=== PATIENT | female | born 1995 | race Caucasian/White ===

== ENCOUNTER 2022-10-11 22:23 | Emergency (ER) | payer OTHER ==
[2022-10-11] MEDS ORDERED: TORAdol 30 mg Injection IM ONE (22:44)
--- NOTE | 2022-10-11 22:53 | ERPHSYRPT ---
- History of Present Illness Time Seen by Provider: 10/11/22 22:50 Exam Limitations: no limitations Patient Subjective Stated Complaint: pt states "my stomach has been hurting approx 3-4 days. it is bilat lower abd and radiates to back and vagina" she reports the pain started the day after having sexual intercourse. Triage Nursing Assessment: pt ambulated from EMS cot to bathroom then bed in room 6 independently with a slow steady gait. pt is alert and oriented times t hree, able to move all extremities, able to speak in complete sentences, and with resp even and unlabored. abd soft, nondistended, symmetrical, obese, with positive bowel sounds in all 4 quads. pt states the pain is sharp dull throb and ache and is constant for the last 3-4days and started a day after sexual intercourse. reports slight nausea without vomiting, denies change in appetite or bowel movements. Physician History: Patient is a 27-year-old female presents to emergency department via EMS for evaluation of lower abdominal pain. Symptoms have been ongoing for a pproximately 3 days. Patient was worked up for the same pain at [facility] approximately 3 days ago. Patient had a pelvic exam and a urinalysis completed. Patient was given pain medication and was sent home. Patient states the work-up was negative. Patient concerned as her pain is ongoing. Patient states her pain started 1 day after having intercourse. No fever. No nausea or vomiting. No vaginal discharge. Symptoms are mild to moderate in intensity. No specific worsening improving factors. Patient states she is otherwise healthy. She voices no other complaints or concerns at this time. Portions of this note were created with voice recognition technology. There may be grammatical, spelling, punctuation or sound alike errors Timing/Duration: day(s) Severity: moderate (3 days) Modifying Factors: Improves With: nothing Associated Symptoms: denies symptoms Allergies/Adverse Reactions: clarithromycin [From Biaxin] Allergy (Intermediate, Verified 10/11/22 22:26) Hives fluticasone [From Flonase] Allergy (Intermediate, Verified 10/11/22 22:26) Swelling of Face montelukast [From Singulair] Allergy (Intermediate, Verified 10/11/22 22:26) Swelling of Face Home Medications: Amlodipine Besylate [Norvasc] 10 mg PO DAILY 10/11/22 [History] Cariprazine HCl [Vraylar] 4.5 mg PO DAILY 10/11/22 [History] Ergocalciferol (Vitamin D2) [Drisdol] 1,250 mcg PO WEEKLY 10/11/22 [History] Escitalopram Oxalate [Lexapro] 20 mg PO DAILY 10/11/22 [History] Pramipexole Di-HCl [Pramipexole Dihydrochloride] 0.125 mg PO HS 10/11/22 [History] norethindrone ac-eth estradioL [Microgestin 21 1.5-30 Tab] 1 each PO DAILY 10/11/22 [History] Hx Tetanus, Diphtheria Vaccination/Date Given: Yes Hx Influenza Vaccination/Date Given: Yes Hx Pneumococcal Vaccination/Date Given: No Immunizations Up to Date: Yes Travel Risk - International Travel Have you traveled outside of the country in past 3 weeks: No - Coronavirus Screening Are you exhibiting any of the following symptoms?: No Close contact with a COVID-19 positive Pt in past 14-21 Days: No - Vaccine Status Have you recieved a Covid-19 vaccination: Yes Landscaper: Moderna - Vaccination Dates Date of 2cond Vaccination (if applicable): 11/23/20 - Review of Systems Constitutional: No Symptoms, No Fever, No Chills Eyes: No Symptoms Ears, Nose, & Throat: No Symptoms Respiratory: No Symptoms, No Cough, No Dyspnea Cardiac: No Symptoms, No Chest Pain, No Edema, No Syncope Abdominal/Gastrointestinal: No Symptoms, No Abdominal Pain, No Nausea, No Vomiting, No Diarrhea Genitourinary Symptoms: No Symptoms, No Dysuria Musculoskeletal: No Symptoms, No Back Pain, No Neck Pain Skin: No Symptoms, No Rash Neurological: No Symptoms, No Dizziness, No Focal Weakness, No Sensory Changes Psychological: No Symptoms Endocrine: No Symptoms Hematologic/Lymphatic: No Symptoms Immunological/Allergic: No Symptoms All Other Systems: Reviewed and Negative - Past Medical History Pertinent Past Medical History: Yes Neurological History: Migraines ENT History: No Pertinent History Cardiac History: Hypertension Respiratory History: No Pertinent History, Sleep Apnea Endocrine Medical History: Marquette's Disease Musculoskeletal History: No Pertinent History GI Medical History: GERD History: Other Psycho-Social History: Anxiety, Attention Deficit Disorder, Bipolar, Depression Female Reproductive Disorders: No Pertinent History Other Medical History: biplor 1 and 2, adhd, kidney stone a few months ago - Past Surgical History Past Surgical History: Yes Neuro Surgical History: No Pertinent History Cardiac: No Pertinent History Respiratory: No Pertinent History Gastrointestinal: Cholecystectomy Genitourinary: No Pertinent History Musculoskeletal: No Pertinent History Female Surgical History: Section Other Surgical History: tubes in ears x4, - Social History Smoking Status: Current every day smoker How long have you smoked: 14yrs Exposure to second hand smoke: No Drug Use: marijuana Patient Lives Alone: No - Female History Hx Last Menstrual Period: Jun Hx Now: No - Nursing Vital Signs Nursing Vital Signs: Initial Vital Signs Temperature 96.6 F 10/11/22 22:24 Pulse Rate 88 10/11/22 22:24 Respiratory Rate 18 10/11/22 22:24 Blood Pressure 159/92 10/11/22 22:24 O2 Sat by Pulse Oximetry 95 10/11/22 22:24 Pain Scale Pain Intensity 8 - Physical Exam General Appearance: no apparent distress, alert Eye Exam: PERRL/EOMI, eyes nml inspection Ears, Nose, Throat Exam: normal ENT inspection, TMs normal, pharynx normal, moist mucous membranes Neck Exam: normal inspection, non-tender, supple, full range of motion Respiratory Exam: normal breath sounds, lungs clear, No respiratory distress Cardiovascular Exam: regular rate/rhythm, normal heart sounds, normal peripheral pulses Gastrointestinal/Abdomen Exam: soft, normal bowel sounds, other (No rebound no guarding no peritoneal signs. Abdomen is soft. Patient reports some tenderness to palpation lower abdomen. Pain spans across lower abdomen. Pain undifferentiated.), No tenderness, No mass Back Exam: normal inspection, normal range of motion, No CVA tenderness, No vertebral tenderness Extremity Exam: normal inspection, normal range of motion, pelvis stable Neurologic Exam: alert, oriented x 3, cooperative, normal mood/affect, nml cerebellar function, nml station & gait, sensation nml, No motor deficits Skin Exam: normal color, warm, dry, No rash Lymphatic Exam: No adenopathy SpO2 Interpretation: normal SpO2: 95 O2 Delivery: Room Air - Course Nursing assessment & vital signs reviewed: Yes - CT Exams Abdomen/Pelvis CT Interpretation: Tele-radiologist Report (Ovarian cyst, hepatomegaly, rad iologist recommending ultrasound.) - Radiology Ultrasound Exam Pelvis Ultrasound: discussed w/radiologist (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 negative for torsion.) Ordered Tests: Active Orders 24 hr Category Date Time Status ABDOMEN AND PELVIS W/0 CONTRAS [CT] Stat Exams 10/11/22 22:49 Completed PELVIS TRANS VAGINAL [US] Stat Exams 10/12/22 00:48 Ordered CBC W DIFF Stat Lab 10/11/22 22:53 Completed CMP Stat Lab 10/11/22 22:53 Completed UA W/RFX UR CULTURE Stat Lab 10/11/22 22:28 Completed Medication Summary Discontinued Medications Generic Name Dose Route Start Last Admin Trade Name Alejandro PRN Reason Stop Dose Admin Ketorolac Tromethamine 30 mg 10/11/22 22:44 10/11/22 22:57 Ketorolac Tromethamine 30 Mg/Ml Inj IM 10/11/22 22:45 30 mg STAT ONE Administration Ketorolac Tromethamine Confirm 10/11/22 22:55 Ketorolac Tromethamine 30 Mg/Ml Inj Administered 10/11/22 22:56 Dose 30 mg .ROUTE .STK-MED ONE Ondansetron HCl 4 mg 10/11/22 23:35 10/11/22 23:37 Zofran 4 Mg/Udtablet Orally Disintegrating PO 10/11/22 23:36 4 mg STAT ONE Administration Ondansetron HCl Confirm 10/11/22 23:36 Zofran 4 Mg/Udtablet Orally Disintegrating Administered 10/11/22 23:37 Dose 4 mg .ROUTE .STK-MED ONE Lab/Rad Data: Laboratory Result Diagrams 10/11/22 22:53 10/11/22 22:53 Laboratory Results 10/11/22 10/11/22 10/11/22 Range/Units 22:53 22:53 22:28 WBC 14.6 H (4.0-10.5) x10^3/uL RBC 4.76 (4.1-5.4) x10^6/uL Hgb 14.7 (12.0-16.0) g/dL Hct 45.0 (35-47) % MCV 94.5 (78-100) fL MCH 30.9 (26-32) pg MCHC 32.7 (32-36) g/dL RDW 12.9 (11.5-14.0) % Plt Count 245 (150-450) x10^3/uL MPV 9.8 (7.5-11.0) fL Gran % 60.4 (36.0-66.0) % Immature Gran % (Auto) 0.3 (0.00-0.4) % Nucleat RBC Rel Count 0.0 (0.00-0.1) % Eos # (Auto) 0.19 (0-0.5) x10^3/uL Immature Gran # (Auto) 0.04 H (0.00-0.03) x10^3u/L Absolute Lymphs (auto) 4.68 H (1.0-4.6) x10^3/uL Absolute Monos (auto) 0.82 (0.0-1.3) x10^3/uL Absolute Nucleated RBC 0.00 (0.00-0.01) x10^3u/L Lymphocytes % 32.0 (24.0-44.0) % Monocytes % 5.6 (0.0-12.0) % Eosinophils % 1.3 (0.00-5.0) % Basophils % 0.4 (0.0-0.4) % Absolute Granulocytes 8.85 H (1.4-6.9) x10^3/uL Basophils # 0.06 (0-0.4) x10^3/uL Sodium 139 (137-145) mmol/L Potassium 3.8 (3.5-5.1) mmol/L Chloride 106 (98-107) mmol/L Carbon Dioxide 24 (22-30) mmol/L Anion Gap 12.5 (5-15) MEQ/L BUN 7 (7-17) mg/dL Creatinine 0.54 (0.52-1.04) mg/dL Estimated GFR > 60.0 ML/MIN Glucose 125 H (74-106) mg/dL Calcium 9.3 (8.4-10.2) mg/dL Total Bilirubin 0.20 (0.2-1.3) mg/dL AST 22 (14-36) U/L ALT 27 (0-35) U/L Alkaline Phosphatase 74 (38-126) U/L Serum Total Protein 6.6 (6.3-8.2) g/dL Albumin 3.5 (3.5-5.0) g/dL Urine Color Yellow (Yellow) Urine Appearance Turbid A (Clear) Urine pH 6.5 (4.6-8.0) Ur Specific Norvell 1.020 (1.005-1.030) Urine Protein Negative (Negative) Urine Glucose (UA) Negative (Negative) mg/dL Urine Ketones Negative (Negative) Urine Blood Negative (Negative) Urine Nitrite Negative (Negative) Urine Bilirubin Negative (Negative) Urine Urobilinogen 1.0 A (0.2) mg/dL Ur Leukocyte Esterase Small A (Negative) U Hyaline Cast (Auto) NONE SEEN (0-2) /LPF Urine Microscopic RBC 0-2 (0-5) /HPF Urine Microscopic WBC 3-5 (0-5) /HPF Ur Epithelial Cells Moderate A (None Seen) /HPF Amorphous Crystals Few A (None Seen) /HPF Urine Bacteria Rare A (None Seen) /HPF Urine Culture Reflexed NO (NO) - Progress Progress: improved Progress Note: Outside medical records reviewed. Dr. Stephens reviewed medical records from [facility]. Patient followed up at [facility] 3 days ago. Patient received a work-up for STI. Patient received appropriate antibiotic therapy. No need to repeat pelvic exam at this time. Over CT abdomen pelvis was not performed. We will perform CT abdomen pelvis this evening 10/11/22 23:43 Patient 27-year-old female presents to our ED for evaluation of lower abdominal pain. Patient arrived via EMS. Patient had a STI work-up at an outside hospital. CT scan and labs obtained from our ED. CT scan shows a large ovarian cyst. Radiologist recommended a ultrasound of the ovary. Ultrasound negative for torsion. CBC reveals a slight leukocytosis. CMP essentially within normal limits. Urinalysis negative for UTI. Patient received Zofran for nausea and Toradol for pain. Patient resting comfortably. No indication for further work- up. Patient will be referred to further evaluation and treatment of large ovarian cyst. Patient agrees to follow-up as discussed. She states she is ready for discharge. Patient voices no other complaints or concerns at this time. Portions of this note were created with voice recognition technology. There may be grammatical, spelling, punctuation or sound alike errors Complexity of problem addressed is moderate new diagnosis with uncertain prognosis No critical care time Complexity of data reviewed and analyzed is moderate. Seen ordered, test reviewed and analyzed by Dr. Stephens. Testing includes urinalysis laboratory studies, pelvic ultrasound and CT abdomen pelvis. Risk of complication and or risk morbidity/mortality of patient management is moderate. IV Toradol and Zofran administered. Patient agrees to follow-up with PROCESS LINE OPERATOR for further evaluation and treatment. Patient states ready for discharge. She voices no other complaints or concerns at this time. Portions of this note were created with voice recognition technology. There may be grammatical, spelling, punctuation or sound alike errors 10/12/22 01:20 Counseled pt/family regarding: lab results, diagnosis, rad results - Departure Departure Disposition: Home Clinical Impression: Hepatomegaly, Umbilical hernia, Right ovarian cyst Condition: Stable Critical Care Time: No Referrals: HAILEY LOTT NP [Primary Care Provider] - Follow up/PCP as directed JORDAN FREY DO [ACTIVE STAFF] - Follow up/PCP as directed Additional Instructions: Discharge/Care Plan DANIELLA SPEARS was seen on 10/12/22 in the Emergency Room. The patient was counseled regarding Diagnosis,Lab results, Imaging studies, need for follow up and when to return to the Emergency Room. Prescriptions given: Discharge Note I have spoken with the patient and/or caregivers. I have explained the patient's condition, diagnosis and treatment plan based on the information available to me at this time. I have answered the patient's and/or caregiver's questions and addressed any concerns. The patient and/or caregivers have as good understanding of the patient's diagnosis, condition and treatment plan as can be expected at this point. The vital signs have been stable. The patient's condition is stable and appropriate for discharge from the emergency department. The patient will pursue further outpatient evaluation with the primary care p louise or other designated or consulting physician as outlined in the discharge instructions. The patient and/or caregivers are agreeable to this plan of care and follow-up instructions have been explained in detail. The patient and/or caregivers have received these instruction. The patient/and or caregivers are aware that any significant change in condition or worsening of symptoms should prompt an immediate return to this or the closest emergency department or call 911.
[2022-10-11 22:55] LABS: Absolute Neutrophil Ct (ANC) 8.85 x10^3/uL (1.4-6.9); BASOPHIL % 0.4 % (0.0-0.4); Basophil (Absolute #) 0.06 x10^3/uL (0-0.4); Eosinophil % 1.3 % (0.00-5.0); Eosinophil (Absolute #) 0.19 x10^3/uL (0-0.5); Hemoglobin 14.7 g/dL (12.0-16.0); IMMATURE GRAN # 0.04 x10^3u/L (0.00-0.03); IMMATURE GRAN % 0.3 % (0.00-0.4); Lymphocyte (Absolute #) 4.68 x10^3/uL (1.0-4.6); Mean Cell Volume 94.5 fL (78-100); Mean Corpuscular Hemoglobin 30.9 pg (26-32); Mean Corpuscular Hgb Concent. 32.7 g/dL (32-36); Mean Platelet Volume 9.8 fL (7.5-11.0); Monocyte (Absolute #) 0.82 x10^3/uL (0.0-1.3); Monocytes % 5.6 % (0.0-12.0); Neutrophil % 60.4 % (36.0-66.0); Platelet Count 245 x10^3/uL (150-450); Red Blood Count 4.76 x10^6/uL (4.1-5.4); Red Cell Distribution Width 12.9 % (11.5-14.0); White Blood Count 14.6 x10^3/uL (4.0-10.5)
[2022-10-11] MEDS ORDERED: TORAdol 30 mg Injection ONE (22:55)
[2022-10-11 23:08] LABS: ALBUMIN 3.5 g/dL (3.5-5.0); ALKALINE PHOSPHATASE 74 U/L (38-126); ANION GAP 12.5 MEQ/L (5-15); BLOOD UREA NITROGEN 7 mg/dL (7-17); CHLORIDE 106 mmol/L (98-107); Calcium 9.3 mg/dL (8.4-10.2); Carbon Dioxide 24 mmol/L (22-30); Creatinine 1 0.54 mg/dL (0.52-1.04); EST GLOMERULAR FILTRATION RATE > 60.0 ML/MIN; Glucose 125 mg/dL (74-106); Potassium 3.8 mmol/L (3.5-5.1); SGOT/AST 22 U/L (14-36); SGPT/ALT 27 U/L (0-35); SODIUM 139 mmol/L (137-145); Total Protein 6.6 g/dL (6.3-8.2)
[2022-10-11 23:27] LABS: Appearance Turbid (Clear); Bacteria Rare /HPF (None Seen); Bilirubin Negative (Negative); Blood Negative (Negative); Epithelial Cells Moderate /HPF (None Seen); Glucose, Urine Negative (Negative); Hyaline Casts NONE SEEN /LPF (0-2); Ketones Negative (Negative); Leukocyte Esterase Small (Negative); Nitrite Negative (Negative); Ph 6.5 (4.6-8.0); Protein,Urine Dip Negative (Negative); RBC 0-2 /HPF (0-5)
[2022-10-11 23:34] LABS: Amourphous Crystal Few /HPF (None Seen)
[2022-10-11 23:35] LABS: ADD URINE CULTURE? NO (NO)
[2022-10-11] MEDS ORDERED: ZOFRAN ODT 4 MG PO ONE (23:35)
--- NOTE | 2022-10-11 23:35 | XRAY ---
CLINICAL HISTORY:pain COMPARISON:None; TECHNIQUES:Contiguous, multislice, nonenhanced CT scan of the abdomen and pelvis in the axial plane with multiplanar reconstructions. Total DLP-1424.36; CTDI-25.34; FINDINGS: Mild enlarged liver measuring about 18.7 cm in craniocaudal axis showing homogeneous attenuation with no obvious focal mass lesion within the limitations of non-contrast study. No intrahepatic biliary dilatation. Gallbladder is surgically removed as evidenced by metallic densities in the gallbladder fossa. Pancreas and spleen appear unremarkable. No adrenal or retroperitoneal masses. Both kidneys appear normal in size, shows normal contour and attenuation. No calculus, mass or hydronephrosis in either kidney. No ascites. No para-aortic lymphadenopathy. Anterior abdominal wall defect in the umbilical region containing omental fat representing umbilical hernia. Imaged bowel structures appear unremarkable. No bowel wall thickening. No bowel dilatation. The appendix is visualized and appear within normal limits. Urinary bladder shows inadequate distention. Normal-sized uterus showing homogeneous attenuation. There is a 6.3 X4.1X 5.4 cm cystic attenuation lesion in the right adnexa. No acute osseous abnormalities or suspicious bony lesions. Visualized sections of lower chest shows no focal mass or consolidation. IMPRESSION: Limited parenchymal organ evaluation within the limitations of non-contrast study. Mild hepatomegaly. Fat-containing umbilical hernia. Cystic attenuation lesion in the right adnexa measuring about 6.3 cm representing adnexal cyst/ right para ovarian cyst. Further evaluation with ultrasound is recommended. Rest of the findings as detailed above. Electronically Signed by: Galilea Stevens MD. (10/11/2022 22:30:52 ORDNANCE TECHNICIAN)
[2022-10-11] MEDS ORDERED: ZOFRAN ODT 4 MG ONE (23:36)
[2022-10-12 01:33] VITALS: BP 134/100; PULSE 79; O2SAT 97
--- NOTE | 2022-10-12 08:43 | XRAY ---
Indication: Abdomen pain. Torsion. Two-dimensional transabdominal and transvaginal pelvic sonogram performed. Comparison: None Uterus anteverted measuring 8.7 x 4.6 x 5.5 cm. No focal solid/cystic uterine mass. Endometrial stripe not measured. Lower uterus demonstrates tiny nonspecific endometrial cavity/endocervical fluid up to 3 mm in thickness. No focal endometrial cavity mass. Right ovary measures 3.5 x 2.0 x 3.1 cm and demonstrates normal perfusion. Right ovary also demonstrates a 5.7 cm benign appearing cyst. Nonvisualization left ovary. No suspicious solid adnexal mass or free fluid. Impression: Nonvisualization left ovary. 5.7 cm dominant right ovary cyst with normal ovary perfusion. Tiny nonspecific endometrial cavity fluid. Comment: Preliminary report was given.
== END 2022-10-12 01:36 | disposition home or self-care (01) ==
LOC: ED 22:23
DX: R16.0 Hepatomegaly, not elsewhere classified (principal); K42.9 Umbilical hernia without obstruction or gangrene; N83.201 Unspecified ovarian cyst, right side; R10.30 Lower abdominal pain, unspecified; I10 Essential (primary) hypertension; Z79.899 Other long term (current) drug therapy; Z72.0 Tobacco use
CPT/HCPCS: 36415; 74176; 76830; 80053; 81001; 85025; 96372; 99284; J1885; Q0162

== ENCOUNTER 2022-11-13 01:23 | Emergency (ER) | payer OTHER ==
[2022-11-13 01:39] VITALS: PULSE 93; O2SAT 97
--- NOTE | 2022-11-13 01:43 | ERPHSYRPT ---
- History of Present Illness Time Seen by Provider: 11/13/22 01:25 Source: patient Exam Limitations: no limitations Patient Subjective Stated Complaint: pt states she has nasal congestion and a headache Triage Nursing Assessment: pt came into the er via ambulance; pt is axo x4; c/o nasal congestion; c/o headache; pt denies pain; skin is pink, warm, dry; clear lung sounds in all lobes; no cough present; no SOB present; hypertensive Physician History: Nasal congestion, sinus drainage. No fever, chills, systemic signs of illness. No falls or other trauma. Has been trying Flonase at home. No other cough, cold. Taking p.o. well. No fever here. No signs of meningitis, signs of a venous sinus thrombosis, encephalitis. Allergies/Adverse Reactions: clarithromycin [From Biaxin] Allergy (Intermediate, Verified 11/13/22 01:26) Hives fluticasone [From Flonase] Allergy (Intermediate, Verified 11/13/22 01:26) Swelling of Face montelukast [From Singulair] Allergy (Intermediate, Verified 11/13/22 01:26) Swelling of Face Home Medications: Amlodipine Besylate [Norvasc] 10 mg PO DAILY 10/11/22 [History] Pramipexole Di-HCl [Pramipexole Dihydrochloride] 0.25 mg PO HS 10/11/22 [History] norethindrone ac-eth estradioL [Microgestin 21 1.5-30 Tab] 1 each PO DAILY 10/11/22 [History] Omeprazole 20 mg PO DAILY 11/13/22 [History] Ondansetron ODT 4 MG [Zofran Odt 4 mg] 4 mg PO Q6HPRN PRN 11/13/22 [History] Hx Tetanus, Diphtheria Vaccination/Date Given: Yes Hx Influenza Vaccination/Date Given: Yes Hx Pneumococcal Vaccination/Date Given: No Travel Risk - International Travel Have you traveled outside of the country in past 3 weeks: No - Coronavirus Screening Are you exhibiting any of the following symptoms?: No Close contact with a COVID-19 positive Pt in past 14-21 Days: No - Vaccine Status Have you recieved a Covid-19 vaccination: Yes [place]per: Moderna - Vaccination Dates Date of 2cond Vaccination (if applicable): 11/23/20 - Review of Systems Constitutional: No Fever, No Chills Eyes: No Symptoms Ears, Nose, & Throat: Ear Pain, Nose Congestion Respiratory: No Cough, No Dyspnea Cardiac: No Chest Pain, No Edema, No Syncope Abdominal/Gastrointestinal: No Abdominal Pain, No Nausea, No Vomiting, No Diarrhea Genitourinary Symptoms: No Dysuria Musculoskeletal: No Back Pain, No Neck Pain Skin: No Rash Neurological: No Dizziness, No Focal Weakness, No Sensory Changes Psychological: No Symptoms Endocrine: No Symptoms All Other Systems: Reviewed and Negative - Past Medical History Pertinent Past Medical History: Yes Neurological History: Migraines ENT History: No Pertinent History Cardiac History: Hypertension Respiratory History: No Pertinent History, Sleep Apnea Endocrine Medical History: Jonnathan's Disease Musculoskeletal History: No Pertinent History GI Medical History: GERD History: Other Psycho-Social History: Anxiety, Attention Deficit Disorder, Bipolar, Depression Female Reproductive Disorders: No Pertinent History Other Medical History: biplor 1 and 2, adhd, kidney stone a few months ago - Past Surgical History Past Surgical History: Yes Neuro Surgical History: No Pertinent History Cardiac: No Pertinent History Respiratory: No Pertinent History Gastrointestinal: Cholecystectomy Genitourinary: No Pertinent History Musculoskeletal: No Pertinent History Female Surgical History: Section Other Surgical History: tubes in ears x4, - Social History Smoking Status: Light tobacco smoker How long have you smoked: 14yrs Exposure to second hand smoke: No Drug Use: marijuana Patient Lives Alone: No - Female History Hx Now: No - Nursing Vital Signs Nursing Vital Signs: Initial Vital Signs Temperature 98 F 11/13/22 01:31 Pulse Rate 93 H 11/13/22 01:31 Respiratory Rate 14 11/13/22 01:31 O2 Sat by Pulse Oximetry 97 11/13/22 01:31 Pain Scale Pain Intensity 0 - Physical Exam General Appearance: no apparent distress, alert Eye Exam: PERRL/EOMI, eyes nml inspection Ears, Nose, Throat Exam: normal ENT inspection, TMs normal, pharynx normal, moist mucous membranes, other (Patient has no teeth) Neck Exam: normal inspection, non-tender, supple, full range of motion Respiratory Exam: normal breath sounds, lungs clear, No respiratory distress Cardiovascular Exam: regular rate/rhythm, normal heart sounds, normal peripheral pulses Gastrointestinal/Abdomen Exam: soft, normal bowel sounds, No tenderness, No mass Back Exam: normal inspection, normal range of motion, No CVA tenderness, No vertebral tenderness Extremity Exam: normal inspection, normal range of motion, pelvis stable Neurologic Exam: alert, oriented x 3, cooperative, normal mood/affect, nml cerebellar function, nml station & gait, sensation nml, No motor deficits Skin Exam: normal color, warm, dry, No rash Lymphatic Exam: No adenopathy SpO2: 97 - Course Nursing assessment & vital signs reviewed: Yes - Progress Progress: improved Progress Note: 11/13/22 01:45 Given that patient has been feeling unwell for 3 weeks we will plan to treat with antibiotics at this point time. This is given that she does not feel improved with sinus medication. They state their understanding will follow-up with PCP. Amoxicillin going home. Counseled pt/family regarding: diagnosis, need for follow-up - Departure Departure Disposition: Home Clinical Impression: Sinusitis Condition: Stable Critical Care Time: No Referrals: HAILEY LOTT, CANE BURNER [Primary Care Provider] - Follow up/PCP as directed Instructions: Headache, Adult (DC) Prescriptions: Amoxicillin 500 mg Cap [Amoxil 500 mg] 500 mg PO BID 10 Days #20 cap
== END 2022-11-13 02:00 | disposition home or self-care (01) ==
LOC: ED 01:23
DX: J32.9 Chronic sinusitis, unspecified (principal); R09.81 Nasal congestion; I10 Essential (primary) hypertension; Z79.899 Other long term (current) drug therapy; Z72.0 Tobacco use
CPT/HCPCS: 99281

== ENCOUNTER 2023-02-27 20:25 | Emergency (ER) | payer OTHER ==
[2023-02-27 20:30] VITALS: TEMP 97.9
--- NOTE | 2023-02-27 21:15 | ERPHSYRPT ---
- History of Present Illness Historian: patient, EMS Exam Limitations: no limitations Patient Subjective Stated Complaint: abd pain x4 days, vomiting, cough Triage Nursing Assessment: Pt brought in by ambulance. Pt alert and oriented x4. Pt c/o abd pain x4 days, with nausea, vomiting and diarrhea. Pt also c/o non-prod cough. Abd is obese with active bs x4 quad, pain to upper middle epiigastic area. Pt c/o flank pain as well. Lungs clear, heart tones reg. LBM today. Physician History: 27 yo WF w RUQ w diarrhea x 5days/N/V/D/RUQ pain rated a 9 out of 10 and stabbing presents per [facility]. She denies dysuria/hematuria/fever/melena/hematoch ezia. Pt seen at [facility] on 01/15/23 by me for similar complaints w neg labs/neg CT abv-pelvis. Timing/Duration: other (5 days) Quality: stabbing Abdominal Pain Onset Location: RUQ Pain Radiation: back Severity of Pain-Max: severe Severity of Pain-Current: severe Modifying Factors: Improves With: nothing Associated Symptoms: denies symptoms, diarrhea, nausea, vomiting Previous symptoms: same symptoms as today Allergies/Adverse Reactions: clarithromycin [From Biaxin] Allergy (Intermediate, Verified 02/27/23 20:40) Hives fluticasone [From Flonase] Allergy (Intermediate, Verified 02/27/23 20:40) Swelling of Face montelukast [From Singulair] Allergy (Intermediate, Verified 02/27/23 20:40) Swelling of Face latex Adverse Reaction (Mild, Verified 02/27/23 20:40) Rash Home Medications: Amlodipine Besylate [Norvasc] 10 mg PO DAILY 10/11/22 [History] Pramipexole Di-HCl [Pramipexole Dihydrochloride] 0.25 mg PO HS 10/11/22 [History] norethindrone ac-eth estradioL [Microgestin 21 1.5-30 Tab] 1 each PO DAILY 10/11/22 [History] Omeprazole 20 mg PO DAILY 11/13/22 [History] Cariprazine HCl [Vraylar] 4.5 mg PO HS 02/27/23 [History] Hx Tetanus, Diphtheria Vaccination/Date Given: (unknown) Hx Influenza Vaccination/Date Given: No Hx Pneumococcal Vaccination/Date Given: No Travel Risk - International Travel Have you traveled outside of the country in past 3 weeks: No - Coronavirus Screening Are you exhibiting any of the following symptoms?: Yes Symptoms: Cough: New Onset, Vomiting/Diarrhea Close contact with a COVID-19 positive Pt in past 14-21 Days: No - Vaccine Status Have you recieved a Covid-19 vaccination: Yes 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 - Review of Systems Constitutional: No Symptoms Eyes: No Symptoms Ears, Nose, & Throat: No Symptoms Respiratory: No Symptoms Cardiac: No Symptoms Abdominal/Gastrointestinal: No Symptoms, Abdominal Pain, Nausea, Vomiting, Diarrhea Genitourinary Symptoms: No Symptoms Musculoskeletal: No Symptoms Skin: No Symptoms Neurological: No Symptoms Psychological: No Symptoms Endocrine: No Symptoms Hematologic/Lymphatic: No Symptoms Immunological/Allergic: No Symptoms - Past Medical History Pertinent Past Medical History: Yes Neurological History: Migraines ENT History: No Pertinent History Cardiac History: Hypertension Respiratory History: Sleep Apnea Endocrine Medical History: [place]'s Disease Musculoskeletal History: No Pertinent History GI Medical History: GERD, Gallbladder Disease History: Other Psycho-Social History: Anxiety, Attention Deficit Disorder, Bipolar, Depression Female Reproductive Disorders: No Pertinent History Other Medical History: biplor 1 and 2, adhd, kidney stone a few months ago - Past Surgical History Past Surgical History: Yes Neuro Surgical History: No Pertinent History Cardiac: No Pertinent History Respiratory: No Pertinent History Gastrointestinal: Cholecystectomy Genitourinary: No Pertinent History Musculoskeletal: No Pertinent History Female Surgical History: Section Other Surgical History: tubes in ears x4, all teeth extracted - Social History Smoking Status: Former smoker How long have you smoked: 14yrs Exposure to second hand smoke: Yes Drug Use: none Patient Lives Alone: No - Female History Hx Last Menstrual Period: . Hx Now: (unknown) - Nursing Vital Signs Nursing Vital Signs: Initial Vital Signs Temperature 97.9 F 02/27/23 20:29 Pulse Rate 96 H 02/27/23 20:29 Respiratory Rate 24 02/27/23 20:29 Blood Pressure 133/91 02/27/23 20:29 O2 Sat by Pulse Oximetry 96 02/27/23 20:29 Pain Scale Pain Intensity 8 Hypertensive - Physical Exam General Appearance: no apparent distress Eye Exam: PERRL/EOMI, eyes nml inspection Ears, Nose, Throat Exam: normal ENT inspection, TMs normal, pharynx normal, moist mucous membranes Neck Exam: normal inspection, non-tender, supple, full range of motion, No meningismus, No mass, No Brudzinski, No Kernig's, No carotid bruit Respiratory Exam: normal breath sounds, lungs clear, airway intact Cardiovascular Exam: regular rate/rhythm, normal heart sounds, normal peripheral pulses, capillary refill <2 sec, No murmur Gastrointestinal/Abdomen Exam: soft, normal bowel sounds, tenderness (Mild RUQ TTP wo guarding or rebound) Back Exam: normal inspection, normal range of motion, No CVA tenderness Extremity Exam: normal inspection, normal range of motion Neurologic Exam: alert, oriented x 3, cooperative, clin application specialist II-XII nml as tested, normal mood/affect, nml cerebellar function, nml station & gait, sensation nml Skin Exam: normal color, warm, dry Lymphatic Exam: No adenopathy SpO2 Interpretation: normal SpO2: 96 O2 Delivery: Room Air - Course Nursing assessment & vital signs reviewed: Yes - CT Exams Abdomen/Pelvis CT Interpretation: Tele-radiologist Report (NAD/VERONICA/Umbilical hernia/R adnexal cyst) Ordered Tests: Active Orders 24 hr Category Date Time Status ABDOMEN AND PELVIS W/0 CONTRAS [CT] Stat Exams 02/27/23 22:13 Completed AMYLASE Stat Lab 02/27/23 21:15 Completed CBC W DIFF Stat Lab 02/27/23 21:15 Completed CMP Stat Lab 02/27/23 21:15 Completed HCG QUALITATIVE, SERUM Stat Lab 02/27/23 21:15 Completed LIPASE Stat Lab 02/27/23 21:15 Completed Medication Summary Discontinued Medications Generic Name Dose Route Start Last Admin Trade Name Freq PRN Reason Stop Dose Admin Ketorolac Tromethamine 30 mg 02/27/23 23:33 02/27/23 23:37 Ketorolac Tromethamine 30 Mg/Ml Inj IM 02/27/23 23:34 30 mg STAT ONE Administration Ketorolac Tromethamine Confirm 02/27/23 23:33 Ketorolac Tromethamine 30 Mg/Ml Inj Administered 02/27/23 23:34 Dose 30 mg .ROUTE .shipbeat-fitmob ONE Lab/Rad Data: Laboratory Result Diagrams 02/27/23 21:15 02/27/23 21:15 Laboratory Results 02/27/23 02/27/23 02/27/23 Range/Units 21:25 21:17 21:15 WBC (4.0-10.5) x10^3/uL RBC (4.1-5.4) x10^6/uL Hgb (12.0-16.0) g/dL Hct (35-47) % MCV (78-100) fL MCH (26-32) pg MCHC (32-36) g/dL RDW (11.5-14.0) % Plt Count (150-450) x10^3/uL MPV (7.5-11.0) fL Gran % (36.0-66.0) % Immature Gran % (Auto) (0.00-0.4) % Nucleat RBC Rel Count (0.00-0.1) % Eos # (Auto) (0-0.5) x10^3/uL Immature Gran # (Auto) (0.00-0.03) x10^3u/L Absolute Lymphs (auto) (1.0-4.6) x10^3/uL Absolute Monos (auto) (0.0-1.3) x10^3/uL Absolute Nucleated RBC (0.00-0.01) x10^3u/L Lymphocytes % (24.0-44.0) % Monocytes % (0.0-12.0) % Eosinophils % (0.00-5.0) % Basophils % (0.0-0.4) % Absolute Granulocytes (1.4-6.9) x10^3/uL Basophils # (0-0.4) x10^3/uL Sodium (137-145) mmol/L Potassium (3.5-5.1) mmol/L Chloride (98-107) mmol/L Carbon Dioxide (22-30) mmol/L Anion Gap (5-15) MEQ/L BUN (7-17) mg/dL Creatinine (0.52-1.04) mg/dL Estimated GFR ML/MIN Glucose (74-106) mg/dL Calcium (8.4-10.2) mg/dL Total Bilirubin (0.2-1.3) mg/dL AST (14-36) U/L ALT (0-35) U/L Alkaline Phosphatase (38-126) U/L Serum Total Protein (6.3-8.2) g/dL Albumin (3.5-5.0) g/dL Amylase (30-110) U/L Lipase (23-300) U/L Serum HCG, Qual NEGATIVE (NEGATIVE) Urine Color YELLOW (YELLOW) Urine Appearance CLEAR (CLEAR) Urine pH 6.5 (5-6) Ur Specific [place] 1.015 (1.005-1.025) Urine Protein Cancelled POC Urine Protein Conf NEGATIVE (Negative) Urine Glucose (UA) Cancelled Urine Ketones NEGATIVE (NEGATIVE) Urine Blood Cancelled Urine Nitrite NEGATIVE (NEGATIVE) Urine Bilirubin NEGATIVE (NEGATIVE) Urine Urobilinogen 0.2 (0-1) mg/dL Ur Leukocyte Esterase Cancelled Urine Leukocytes NEGATIVE (NEGATIVE) U Hyaline Cast (Auto) NONE SEEN (0-2) /LPF Urine RBC NEGATIVE (0-5) Jimmy/ul Urine Microscopic RBC 0-2 (0-5) /HPF Urine Microscopic WBC 0-2 (0-5) /HPF Ur Epithelial Cells Rare (None Seen) /HPF Urine Bacteria None Seen (None Seen) /HPF Urine Culture Reflexed NO (NO) Urine Glucose NEGATIVE (NEGATIVE) mg/dL Influenza Type A Ag NEGATIVE (NEGATIVE) Influenza Type B Ag NEGATIVE (NEGATIVE) RSV (PCR) NEGATIVE (NEGATIVE) SARS-CoV-2 (PCR) NEGATIVE (NEGATIVE) 02/27/23 02/27/23 Range/Units 21:15 21:15 WBC 14.0 H (4.0-10.5) x10^3/uL RBC 4.59 (4.1-5.4) x10^6/uL Hgb 14.1 (12.0-16.0) g/dL Hct 43.1 (35-47) % MCV 93.9 (78-100) fL MCH 30.7 (26-32) pg MCHC 32.7 (32-36) g/dL RDW 12.8 (11.5-14.0) % Plt Count 227 (150-450) x10^3/uL MPV 9.8 (7.5-11.0) fL Gran % 61.2 (36.0-66.0) % Immature Gran % (Auto) 0.3 (0.00-0.4) % Nucleat RBC Rel Count 0.0 (0.00-0.1) % Eos # (Auto) 0.29 (0-0.5) x10^3/uL Immature Gran # (Auto) 0.04 H (0.00-0.03) x10^3u/L Absolute Lymphs (auto) 4.27 (1.0-4.6) x10^3/uL Absolute Monos (auto) 0.75 (0.0-1.3) x10^3/uL Absolute Nucleated RBC 0.00 (0.00-0.01) x10^3u/L Lymphocytes % 30.6 (24.0-44.0) % Monocytes % 5.4 (0.0-12.0) % Eosinophils % 2.1 (0.00-5.0) % Basophils % 0.4 (0.0-0.4) % Absolute Granulocytes 8.56 H (1.4-6.9) x10^3/uL Basophils # 0.05 (0-0.4) x10^3/uL Sodium 140 (137-145) mmol/L Potassium 3.8 (3.5-5.1) mmol/L Chloride 106 (98-107) mmol/L Carbon Dioxide 25 (22-30) mmol/L Anion Gap 12.2 (5-15) MEQ/L BUN 6 L (7-17) mg/dL Creatinine 0.52 (0.52-1.04) mg/dL Estimated GFR > 60.0 ML/MIN Glucose 93 (74-106) mg/dL Calcium 8.9 (8.4-10.2) mg/dL Total Bilirubin 0.20 (0.2-1.3) mg/dL AST 25 (14-36) U/L ALT 38 H (0-35) U/L Alkaline Phosphatase 80 (38-126) U/L Serum Total Protein 5.9 L (6.3-8.2) g/dL Albumin 3.4 L (3.5-5.0) g/dL Amylase 42 (30-110) U/L Lipase 97 (23-300) U/L Serum HCG, Qual (NEGATIVE) Urine Color (YELLOW) Urine Appearance (CLEAR) Urine pH (5-6) Ur Specific [place] (1.005-1.025) Urine Protein POC Urine Protein Conf (Negative) Urine Glucose (UA) Urine Ketones (NEGATIVE) Urine Blood Urine Nitrite (NEGATIVE) Urine Bilirubin (NEGATIVE) Urine Urobilinogen (0-1) mg/dL Ur Leukocyte Esterase Urine Leukocytes (NEGATIVE) U Hyaline Cast (Auto) (0-2) /LPF Urine RBC (0-5) Jimmy/ul Urine Microscopic RBC (0-5) /HPF Urine Microscopic WBC (0-5) /HPF Ur Epithelial Cells (None Seen) /HPF Urine Bacteria (None Seen) /HPF Urine Culture Reflexed (NO) Urine Glucose (NEGATIVE) mg/dL Influenza Type A Ag (NEGATIVE) Influenza Type B Ag (NEGATIVE) RSV (PCR) (NEGATIVE) SARS-CoV-2 (PCR) (NEGATIVE) - Progress Progress Note: 02/28/23 02:40 Nursing note and vital signs reviewed No food or housing insecurities noted All lab results reviewed and shared w pt CT results reviewed and shared w pt 02/28/23 02:41 30mg IM Toradol Work up for abdominal pain again negative for acute etiology No evidence of surgical abdomen on serial exams Pt discharged to f/u w her family Counseled pt/family regarding: lab results, diagnosis, need for follow-up, rad results Medical Desision Making - Diagnostic Testing Diagnostic test were ordered, analyzed, and reviewed by me: Yes Radiological Interpretation: Reviewed by me - Risk of complications Low Risk: Low risk of morbidity from additional dx testing or treatment - Departure Departure Disposition: Home Clinical Impression: Abdominal pain Condition: Stable Critical Care Time: No Referrals: HAILEY LOTT PHYSICAL THERAPY AIDE [NON-STAFF PHY W/O PRIVILEGES] - Follow up/PCP as directed Instructions: Severe Abdominal Pain, Adult (DC) Additional Instructions: Return to ER for increasing pain or temperature greater than 100.5
[2023-02-27 21:21] LABS: Absolute Neutrophil Ct (ANC) 8.56 x10^3/uL (1.4-6.9); BASOPHIL % 0.4 % (0.0-0.4); Basophil (Absolute #) 0.05 x10^3/uL (0-0.4); Eosinophil % 2.1 % (0.00-5.0); Eosinophil (Absolute #) 0.29 x10^3/uL (0-0.5); Hematocrit 43.1 % (35-47); Hemoglobin 14.1 g/dL (12.0-16.0); IMMATURE GRAN # 0.04 x10^3u/L (0.00-0.03); IMMATURE GRAN % 0.3 % (0.00-0.4); Lymphocyte (Absolute #) 4.27 x10^3/uL (1.0-4.6); Lymphocytes % 30.6 % (24.0-44.0); Mean Cell Volume 93.9 fL (78-100); Mean Corpuscular Hemoglobin 30.7 pg (26-32); Mean Corpuscular Hgb Concent. 32.7 g/dL (32-36); Mean Platelet Volume 9.8 fL (7.5-11.0); Monocyte (Absolute #) 0.75 x10^3/uL (0.0-1.3); Monocytes % 5.4 % (0.0-12.0); Neutrophil % 61.2 % (36.0-66.0); Platelet Count 227 x10^3/uL (150-450); Red Blood Count 4.59 x10^6/uL (4.1-5.4); Red Cell Distribution Width 12.8 % (11.5-14.0)
[2023-02-27 21:23] LABS: Appearance CLEAR (CLEAR)
[2023-02-27 21:24] LABS: Bilirubin NEGATIVE (NEGATIVE); Glucose NEGATIVE (NEGATIVE); Ketones NEGATIVE (NEGATIVE)
[2023-02-27 21:25] LABS: Nitrite NEGATIVE (NEGATIVE); Ph 6.5 (5-6); Protein,Urine Dip NEGATIVE (Negative); RBC NEGATIVE Ery/ul (0-5); Specific Gravity 1.015 (1.005-1.025); Urobilinogen 0.2 mg/dL (0-1)
[2023-02-27 21:34] LABS: ADD URINE CULTURE? NO (NO); Bacteria None Seen /HPF (None Seen); Epithelial Cells Rare /HPF (None Seen); Hyaline Casts NONE SEEN /LPF (0-2); RBC 0-2 /HPF (0-5); WBC 0-2 /HPF (0-5)
[2023-02-27 21:46] LABS: ALBUMIN 3.4 g/dL (3.5-5.0); ALKALINE PHOSPHATASE 80 U/L (38-126); AMYLASE 42 U/L (30-110); ANION GAP 12.2 MEQ/L (5-15); BLOOD UREA NITROGEN 6 mg/dL (7-17); CHLORIDE 106 mmol/L (98-107); Calcium 8.9 mg/dL (8.4-10.2); Carbon Dioxide 25 mmol/L (22-30); Creatinine 1 0.52 mg/dL (0.52-1.04); EST GLOMERULAR FILTRATION RATE > 60.0 ML/MIN; Glucose 93 mg/dL (74-106); HCG SERUM TEST NEGATIVE (NEGATIVE); LIPASE 97 U/L (23-300); Potassium 3.8 mmol/L (3.5-5.1); SGOT/AST 25 U/L (14-36); SGPT/ALT 38 U/L (0-35); SODIUM 140 mmol/L (137-145); Total Protein 5.9 g/dL (6.3-8.2)
[2023-02-27 22:07] LABS: INFLUENZA A NEGATIVE (NEGATIVE); INFLUENZA B NEGATIVE (NEGATIVE); RESPIRATORY SYNCTIAL VIRUS NEGATIVE (NEGATIVE); SARS-CoV-2 Xpert Express NEGATIVE (NEGATIVE)
--- NOTE | 2023-02-27 23:10 | XRAY ---
CLINICAL HISTORY:abdominal pain COMPARISON:CT scan of the abdomen and pelvis dated 10/11/2022. TECHNIQUE:CT scan of the abdomen and pelvis was performed without IV contrast. Coronal and sagittal reconstructive images were also obtained. FINDINGS: Abdomen: The liver is enlarged measuring 18.7 cm craniocaudally. No diffuse or focal parenchymal abnormality. The portal vein, intrahepatic biliary radicals, and the bile ducts are normal. The spleen, pancreas, and adrenal glands are unremarkable. The kidneys are normal in size and shape. No cysts, mass, calculi or hydronephrosis. The gallbladder is absent with surgical clips within the gallbladder fossa. The ascending colon, the transverse colon, the descending colon, visualized small bowel loops are unremarkable. The appendix is not clearly visualized. There is no evidence of significant enlargement of the mesenteric or retroperitoneal lymph nodes. There is a fat-containing umbilical hernia through an anterior abdominal wall defect. Pelvis: The urinary bladder is moderately filled. The uterus is normal. There is redemonstration of the cystic attenuating lesion in the right adnexa, measuring 4.9 x 5.6 x 4.8 cm. The pelvic vasculature is unremarkable. No evidence of pelvic lymphadenopathy. IMPRESSION: 1. Mild hepatomegaly 2. Fat-containing umbilical hernia 3. Cystic attenuation lesion in the right adnexa measuring 4.9 x 5.6 x 4.8 cm. Slightly smaller in size when compared to the previous study. Consider adnexal cysts/right para-ovarian cyst. Ultrasound is suggested for further evaluation. Electronically Signed by: Galilea Stevens MD. (02/27/2023 22:09:41 INSTRUCTIONAL SPECIALIST)
[2023-02-27 23:20] VITALS: BP 122/61; PULSE 97; RESP 16; O2SAT 96
[2023-02-27] MEDS ORDERED: TORAdol 30 mg Injection ONE (23:33)
[2023-02-27] MEDS ORDERED: TORAdol 30 mg Injection IM ONE (23:33)
== END 2023-02-27 23:46 | disposition home or self-care (01) ==
LOC: ED 20:25
DX: R10.11 Right upper quadrant pain (principal); R19.7 Diarrhea, unspecified; R11.2 Nausea with vomiting, unspecified; I10 Essential (primary) hypertension; Z79.899 Other long term (current) drug therapy
CPT/HCPCS: 0241U; 36415; 74176; 80053; 81015; 82150; 83690; 84703; 85025; 96372; 99283; J1885